=== PATIENT | female | born 1980 | race American Indian/Alaskan Native ===

== ENCOUNTER 2018-10-05 08:36 | Inpatient (IN) | payer OTHER, MEDICAID ==
[2018-10-05] MEDS ORDERED: MINERAL OIL PO PRN (10:06)
[2018-10-05] MEDS ORDERED: DULCOLAX PR PRN (10:10)
[2018-10-05] MEDS ORDERED: BENADRYL PO PRN (10:10)
[2018-10-05] MEDS ORDERED: LANSINOH TP PRN (10:10)
[2018-10-05] MEDS ORDERED: NORCO 5/325 PO PRN (10:10)
[2018-10-05] MEDS ORDERED: TUCKS PAD TP PRN (10:10)
[2018-10-05] MEDS ORDERED: TYLENOL PO PRN (10:10)
[2018-10-05] MEDS ORDERED: MILK OF MAGNESIA PO PRN (10:10)
--- NOTE | 2018-10-05 10:18 | History and Physical Report ---
History of Present Illness Date of examination: 10/05/18 Date of admission: 10/05/18 09:28 Chief complaint: Intense labor pains History of present illness: 38yo AA Fe , ADONAY 10/14/2018 (LMP) 38 weeks 4 weeks, presents in active labor. Pt initiated care with [facility] at 8w3d (records available and reviewed). AMA with [facility] referral. Early complicated with hyperemesis. History of abnormal PAP (ASCUS/+HRHPV. Colpo 04/13/18). 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 On supression). denies: chlamydia, gonorrhea, hepatitis B, hepatitis C, HIV, syphilis, trichomonas Medications and Allergies Allergies Allergy/AdvReac Type Severity Reaction Status Date / Time No Known Allergies Allergy Unverified 10/05/18 10:19 Active Meds: Active Medications Oxytocin/Sodium Chloride (Pitocin/Ns 20 Unit/1000ml Drip) 20 units in 1,000 mls @ 125 mls/hr IV DIRECT SIMONA Oxytocin/Sodium Chloride (Pitocin/Ns 30 Unit/500ml) 30 units in 500 mls @ 1 mls/hr IV TITR SIMONA; Protocol Lactated Ringer's (Lactated Ringers) 1,000 mls @ 125 mls/hr IV DIRECT SIMONA Mineral Oil (Mineral Oil) 30 ml PO QHS PRN PRN Reason: Constipation Oxytocin (Pitocin) 10 unit IM ONCE ONE Stop: 10/05/18 10:10 Review of Systems Eyes: normal appearance Cardiovascular: no chest pain, no shortness of breath Respiratory: no shortness of breath Breasts: normal Gastrointestinal: abdominal pain, no nausea, no vomiting, no diarrhea, no constipation Genitourinary: no vaginal bleeding, no vaginal discharge, no leakage of fluid, no genital sores, no contractions Integumentary: no rash, no sores, no lesions - Vital Signs Vital signs: Vital Signs Pulse BP 89 123/80 10/05/18 09:52 10/05/18 09:52 Temp Pulse Resp BP Pulse Ox 89 123/80 10/05/18 09:52 10/05/18 09:52 - Physical Exam Breasts: Positive: normal Cardiovascular: Regular rate, Normal S1, Normal S2, No murmurs Lungs: Positive: Clear to auscultation, Normal air movement Abdomen: Positive: normal appearance, soft, normal bowel sounds Genitourinary (Female): Positive: normal external genitalia, normal perenium Vulva: both: normal Vagina: Positive: normal moisture Uterus: Positive: enlarged (Gravid) Extremities: Positive: normal Deep Tendon Reflex Grade: Normal +2 - Obstetrical FHR: category 1 Cervical Dilatation: 6 (on admission per RN) Cervical Effacement Percentage: 100 station: 0 Uterine Contraction Pattern: Regular Uterine Tone Measurement Phase: Resting Uterine Contraction Intensity: Strong/Firm Results All other labs normal. Assessment and Plan A: Term IUP Active labor GBS Negative Category 1 tracing P: Admit to L&D Routine labor orders Anticipate
--- NOTE | 2018-10-05 10:27 | Procedure Note ---
OB Delivery Note - Delivery Date of Delivery: 10/05/18 (09:49) Surgeon: MARIA FERNANDA YAÑEZ (EVELYN) Estimated blood loss: 100cc - Vaginal Delivery presentation: vertex Delivery position: OA Intrapartum events: precipitous labor- <3hr Delivery induction: none Delivery monitor: external FHT, external uterine Route of delivery: (09:49) Delivery placenta: spontaneous (09:55) Delivery cord: 3 umbilical vessels Delivery laceration: none Anesthesia: none Delivery comments: Unmedicated viable female , MARTINE position over intact perineum at 09:49. Vigorous placed [id number] on mothers abdomen. Delayed cord clamping then cut by FOB with my guidance. Spontaneous martin delivery of intact placenta with 3VC at 09:55. FF@U-2, scant lochia. no tears or lacerations. EBL 100. Infant and mother left in stable condition in L&D. - Infant A at 1 minute: 8 at 5 minutes: 9 Infant Gender: Female (2758 grams, 6lbs 1.2 oz, 18.5")
[2018-10-05] MEDS ORDERED: SODIUM CHLORIDE FLUSH SYRINGE 10 ML IV NR (11:00)
[2018-10-05] MEDS ORDERED: PITOCin/NS 30 UNIT/500ML 30 UNITS/500 ML BAG IV SCH (11:00)
[2018-10-05] MEDS ORDERED: LACTATED RINGERS 1,000 ML IV SCH (11:00)
[2018-10-05] MEDS: PITOCin/NS 20 UNIT/1000ML DRIP 20 UNITS/1,000 ML BAG IV SCH ×2 (11:15→12:35)
[2018-10-05 11:45] LABS: Hematocrit 35.8 % (30.3-42.9); Hemoglobin 11.6 gm/dl (10.1-14.3); Mean Corpuscular HGB Conc 32 % (30-34); Mean Corpuscular Volume 87 fl (79-97); Platelet Count 252 K/mm3 (140-440); Red Blood Count 4.12 M/mm3 (3.65-5.03); Red Cell Distribution Width 15.3 % (13.2-15.2)
[2018-10-05] MEDS: IBUPROFEN PO SCH ×3 (13:39→20:58)
[2018-10-05 23:55] LABS: Hematocrit 31.8 % (30.3-42.9); Hemoglobin 10.3 gm/dl (10.1-14.3)
[2018-10-06] MEDS: IBUPROFEN PO SCH ×2 (00:30→06:42)
--- NOTE | 2018-10-06 12:09 | Progress Note ---
Assessment and Plan - Patient Problems (1) Status post normal vaginal delivery Current Visit: Yes Status: Acute Plan to address problem: PPD 1 -stable Continue routine orders Discharge to home today Follow-up at [facility] as needed or in 6 weeks for exam Subjective - Subjective Date of service: 10/06/18 Principal diagnosis: PPD #1; s/p Interval history: see H&P and OB Delivery Procedure Note Patient reports: appetite normal, voiding normally, pain well controlled, ambu lating normally, no dizzy ambulation, no bowel movement : doing well, nursing well Objective - Vital Signs Latest vital signs: Vital Signs Temp Pulse Resp BP BP Pulse Ox 10/06/18 08:45 97.9 F 66 20 108/69 99 10/06/18 06:42 18 10/06/18 01:30 18 10/06/18 00:30 18 10/05/18 23:54 98.0 F 55 L 20 102/69 100 10/05/18 20:58 18 10/05/18 17:00 98.3 F 55 L 18 101/66 10/05/18 13:00 98.1 F 56 L 18 114/60 10/05/18 12:29 75 112/72 Intake and Output 10/05/18 10/06/18 10/06/18 23:59 07:59 15:59 Intake Total 480 240 Balance 480 240 Intake: Oral 480 240 Other: Total, Intake Amount 480 240 # Voids Void 1 - Exam Abdomen: Present: normal appearance, soft Vulva: both: normal Uterus: Present: normal, firm, fundal height below umbilicus Extremities: Present: normal Comments: scant lochia
--- NOTE | 2018-10-06 12:11 | Discharge Summary ---
Providers - Providers Date of Admission: 10/05/18 09:28 Date of discharge: 10/06/18 Attending physician: WILI MAGAÑA MD Primary care physician: WILI MAGAÑA MD Hospitalization Reason for admission: active labor, IUP at term Delivery: Episiotomy: none Laceration: none Other procedures: none complications: none Discharge diagnosis: IUP at term delivered [place] baby: female Hospital course: Uncomplicated Condition at discharge: Stable Disposition: UT-01 TO HOME OR SELFCARE - Discharge Diagnoses (1) Status post normal vaginal delivery Status: Acute Plan - Provider Discharge Summary Activity: routine, no sex for 6 weeks, no heavy lifting 4 weeks, no strenuous exercise Diet: routine Instructions: routine Additional instructions: [] Smoking cessation referral if applicable(refer to patient education folder for contact #) [] Refer to [facility] Booklet Call your doctor immediately for: * Fever > 100.5 * Heavy vaginal bleeding ( >1 pad per hour) * Severe persistent headache * Shortness of breath * Reddened, hot, painful area to leg or breast * Drainage or odor from incision. * Keep incision clean and dry at all times and follow doctor's instructions regarding bathing/showering - Follow up plan Follow up: WILI MAGAÑA MD [Primary Care Provider] - 6 Weeks (Follow-up at [facility] as needed or in 6 weeks for exam)
[2018-10-06 13:15] VITALS: BP 89/49
== END 2018-10-06 20:40 | disposition home or self-care (01) | DRG 807 ==
LOC: TRG 08:36 → LD 09:28 → OB 13:04
PROVIDERS: ADMIT Obstetrics & Gynecology; ATTEND Obstetrics & Gynecology
PROC: 10E0XZZ Delivery of Products of Conception, External Approach (ICD-10-PCS; principal; 2018-10-05)
DX: O62.3 Precipitate labor (principal); Z37.0 Single live birth; Z3A.38 38 weeks gestation of pregnancy
CPT/HCPCS: 36415; 85014; 85018; 85027; 86592; G0378; J2590